=== PATIENT | male | born 1970 | race Caucasian/White ===

== ENCOUNTER 2024-01-29 19:51 | Outpatient (OUT) | payer OTHER, SELFPAY | END 2024-01-29 19:52 | disposition home or self-care (01) | LOC: SLEEP 19:52 | PROVIDERS: PCP Family Medicine; Visit Provider Family Medicine | DX: G47.33 Obstructive sleep apnea (adult) (pediatric) (principal) | CPT/HCPCS: 95811 ==

== ENCOUNTER 2024-03-25 02:30 | Outpatient (OUT) | payer OTHER, SELFPAY | END 2024-03-25 02:31 | disposition home or self-care (01) | LOC: SLEEP 14:31 | PROVIDERS: PCP Family Medicine; Visit Provider Family Medicine | DX: G47.30 Sleep apnea, unspecified (principal) | CPT/HCPCS: 95806 ==

== ENCOUNTER 2025-02-20 08:07 | Outpatient (OUT) | payer OTHER, SELFPAY ==
--- OUTSIDE RECORDS SUMMARY | 2025-02-20 08:11 | XMS_ITS | CCD ---
Author Organization [facility] Care Team Providers Care Chief I Dispatcher Name Role Phone Geremias BULLARD Primary Care Physician [phone] CHARLENE MONTANA Admitting Unavailable CHARLENE MONTANA Attending Unavailable CHARLENE MONTANA Consulting Unavailable Keon Steele Primary Care Physician Rachid Vargas Attending Unavailable Darron Hughes Attending Unavailable ROBINA TRAYLOR Attending Unavailable Keon Steele MD Primary Care Provider [phone] Medications Current Medications Medication Drug Class(es) Dates Sig (Normalized) Sig (Original) acetaminophen 325 mg / oxyCODONE hydrochloride 5 mg oral tablet (1 source) Opioid Agonist Start: 08-25-2023 End: 08-28-2023 acetaminophen-ox ycodone 325 mg-5 mg Tab 1 tab(s), Oral, q4hr for pain for 3 day(s), 12 tab(s), Refill(s) 0, [id number], 183, cm, 08/25/23 14:05:00 EDT, Height/Length Dosing, 155, kg, 08/25/23 14:05:00 EDT, Weight Dosing Start Date: 08/25/23 Stop Date: 08/28/23 Status: Ordered lisinopril 40 mg oral tablet (2 sources) Angiotensin Converting Enzyme Inhibitor lisinopril 40 MG tablet 1 (one) time each day at the same time Active methocarbamol 500 mg oral tablet (1 source) Muscle Relaxant Start: 08-25-2023 End: 09-01-2023 take 2 tablets by mouth four times daily Robaxin 500 mg Tab 1,000 mg = 2 tab(s), Oral, QID, X 7 day(s), # 56 tab(s), Refills(s) 0, Pharmacy: [id number], 183, cm, 08/25/23 14:05:00 EDT, Height/Length Dosing, 155, kg, 08/25/23 14:05:00 EDT, Weight Dosing Start Date: 08/25/23 Stop Date: 09/01/23 Status: Ordered Problems Active Problems Problem Classification Problem Date Documented Da te Episodic/Chronic Acute bronchitis (1 source) Acute bronchitis, unspecified; Translations: [ACUTE BRONCHITIS UNSPECIFIED] Onset: 02-03-2023 Episodic Open wounds of extremities (2 sources) Laceration of finger without foreign body; Translations: [Laceration without foreign body of left ring finger without damage to nail, initial encounter] Onset: 02-20-2022 Episodic Other nutritional; endocrine; and metabolic disorders (2 sources) Severe obesity; Translations: [Morbid (severe) obesity due to excess calories] 07-15-2024 Chronic Residual codes; unclassified (2 sources) Obstructive sleep apnea syndrome; Translations: [Obstructive sleep apnea (adult) (pediatric)] 07-15-2024 Chronic Residual codes; unclassified (2 sources) Hypersomnia; Translations: [Hypersomnia, unspecified] 07-15-2024 Chronic Spondylosis; intervertebral disc disorders; other back problems (1 source) Lumbago with sciatica; Translations: [Lumbago with sciatica, right side] Onset: 08-25-2023 Episodic Unclassified (3 sources) CONTACT W/AND (SUSP) EXPOS COVID-19; Translations: [CONTACT W/AND (SUSP) EXPOS COVID-19] Onset: 02-03-2023 Past or Other Problems Problem Classification Problem Date Documented Da te Episodic/Chronic Other lower respiratory disease (2 sources) Hypoxia; Translations: [Hypoxemia] 07-15-2024 Episodic Other lower respiratory disease (2 sources) Snoring; Translations: [Snoring] 07-15-2024 Episodic Residual codes; unclassified (2 sources) Sleep deprivation; Translations: [Sleep deprivation] 07-15-2024 Episodic Residual codes; unclassified (2 sources) Inadequate sleep hygiene; Translations: [Inadequate sleep hygiene] 07-15-2024 Episodic Unclassified (1 source) CONTACT W/AND (SUSP) EXPOS COVID-19; Translations: [CONTACT W/AND (SUSP) EXPOS COVID-19] Onset: 01-31-2023 Results Test Name Value Interpretation Reference Range Facil ity ED Note-Physicianon 10-17-20 23 ED Note-Physician Basic Information Time Seen: David HENDERSON, Shane Boyd. 08/25/2023 15:07 Chief Complaint Pt presents to ED with complaints of back pain. History of Present Illness A 53-year-old male reports to the emergency department with chief complaint of back pain. Reports his back pain has been going on over the last couple days. Reports he has had this before, there is a flareup of sciatica. Reports he did go to physical therapy on Saturday, similarly made it worse. Just wants we will give him through the pain. Denies any new injuries or symptoms. Denies any bowel or bladder defects. He states that he has no known allergies. He denies any pain otherwise. States that it goes in his right lower back down to his right leg. Review of Systems A 10 point review of systems is negative except as noted above. Medical and Surgical History: Reviewed and noted Social history: Lives at home Family History: Reviewed. Tobacco: Denies Physical Exam Vitals & Measurements T: 36.9 ?C(Oral) HR: 63(Peripheral) RR: 18 BP: 175/107 SpO2: 96% HT: 183 cm WT: 155 kg BMI: 46.28 General: The patient appears well and in no apparent distress. Patient is resting comfortably in chair. Afebrile Skin: Warm, dry, no pallor noted. Head: Normocephalic, atraumatic Neck: No JVD Eye: PERRLA, EOMI ENT: Moist mucus membranes Cardiovascular: Regular rate normal peripheral perfusion. Pedal pulses +2 bilaterally Respiratory: No respiratory distress no accessory muscle use no obvious audible wheezing Chest Wall: no deformity Musculoskeletal: No step-off of the midline spine, but there is tenderness generally throughout the right lumbar region of the back. No step-off felt. Positive straight leg test the right leg. GI: No obvious distention Neurological: A&O moves all extremities equal strength and symmetry Psychiatric: Cooperative and appropriate Medical Decision Making MEDICAL DECISION MAKING Number and Complexity of Problems Differential Diagnosis: [] [facility] Data External documents reviewed: [] My EKG interpretation: [] My CT interpretation: [] My X-ray interpretation: [] My Ultrasound interpretation: [] Decision rules/scores evaluated: [] Discussed with: [] Treatment and Disposition ED Course: 53-year-old male reports to the emergency department chief complaint of low back pain. Reports that this is flared up, and it was recently diagnosed with sciatica. States that it seems like it is worsening now after a physical therapy session on Saturday. Denies any injury or trauma. No warning signs for cauda equina syndrome. No saddle anesthesias or bowel or bladder defects. On physical exam 5 do not feel any step-offs felt. There is generalized region of the lumbar's region of the back, but otherwise a relatively benign exam. Due to his concerns, we will do pain medicine as well as muscle relaxer for symptomatic relief. Patient was happy with this. Discussed follow-up with PCP. Discussed return precautions. Follow-up with your primary care provider in 3 to 5 days. If symptoms worsen, do not improve, or new symptoms arise please report back to emergency department for further evaluation. The patient was understanding and agreeable to plan moving forward. Shared decision making: [] Code status: [] Assessment/Plan Lumbago with sciatica, right side (M54.41: Lumbago with sciatica, right side) Orders: acetaminophen-oxycodo ne, 1 tab(s), Oral, q4hr for pain for 3 day(s), 12 tab(s), Refill(s) 0, [id number], 183, cm, 08/25/23 14:05:00 EDT, Height/Length Dosing, 155, kg, 08/25/23 14:05:00 EDT, Weight Dosing ketorolac, 60 mg = 2 mL, Injection, IntraMuscular, Once, Stop date 08/25/23 15:24:00 EDT, STAT, Start date 08/25/23 15:24:00 EDT, 08/25/23 15:24:00 EDT methocarbamol, 1,000 mg = 2 tab(s), Oral, QID, X 7 day(s), # 56 tab(s), Refills(s) 0, Pharmacy: [id number], 183, cm, 08/25/23 14:05:00 EDT, Height/Length Dosing, 155, kg, 08/25/23 14:05:00 EDT, Weight Dosing morphine, 4 mg = 2 mL, Injection, IntraMuscular, Once, Stop date 08/25/23 15:24:00 EDT, STAT, Start date 08/25/23 15:24:00 EDT, 08/25/23 15:24:00 EDT orphenadrine, 60 mg = 2 mL, Injection, IntraMuscular, Once, Stop date 08/25/23 15:24:00 EDT, STAT, Start date 08/25/23 15:24:00 EDT, 08/25/23 15:24:00 EDT Medications Administered Given ketorolac 60 mg/2 mL Injection, 60 mg, IntraMuscular morphine 2 mg/mL Inj, 4 mg, IntraMuscular orphenadrine 30 mg/mL Inj, 60 mg, IntraMuscular Disposition Plan Patient Discharge Condition Stable Discharge Disposition To home Discharge Prescription List Prescriptions acetaminophen-oxycodo ne 325 mg-5 mg Tab, 1 tab(s), Oral, q4hr, PRN Robaxin 500 mg Tab, 1000 mg= 2 tab(s), Oral, QID Follow-up With When Contact Information Keon Steele In 3 days 08/28/2023 EDT [address] [phone] Business (1) Additional Instructions: Follow-up with your primary care provider in 3 to 5 da (more content not included)... [facility] Comment on above: Result Comment: Elec tronically Signed By: Shane Hernandez PA-C\.br\Date and Time Signed: 08/25/23 19:47 EDT\.br\Electronically Co-Signed By: Darron Hughes MD\.br\Date and Time Co-Signed: 08/27/23 20:30 EDT Consent for Treatmenton 08-11 Consent for Treatment [id number] .00TIFF [facility] Discharge Instructionson Discharge Instructions [id number]# 1.00TIFF [facility] ED Clinical Summaryon 2022 ED Clinical Summary [address] [address] ED Clinical Summary Person Information Name: DARREN AWAD/Kelly Age: 53 Years : 1970 Sex: Male Language: Angolan PCP: Keon Steele MD Marital Status: Phone: [phone] Visit Id: Visit Reason: Back pain; BACK PAIN Speciality: Acuity: 4 Enc Type: Emergency Med Service: Emergency Arrival: 08/25/2023 13:53:37 Discharge: 08/25/2023 16:25:16 LOS: 000 02:32 Checkin: 08/25/2023 13:53:37 Checkout: 08/25/2023 16:25:16 Dispo Type: Home (Routine DC) EVENTS: Event Name Event Status Request Date/Time Start Date/Time Complete Date/Time Arrive Complete 08/25/2023 13:53:37 08/25/2023 13:53:37 08/25/2023 13:53:37 Document Home Meds Request 08/25/2023 13:53:37 Triage Complete 08/25/2023 13:53:37 08/25/2023 14:05:49 08/25/2023 14:05:49 Registration Complete 08/25/2023 14:00:36 08/25/2023 14:00:36 08/25/2023 14:00:36 Reg Complete Request 08/25/2023 14:00:36 Bed Assign Complete 08/25/2023 14:08:37 08/25/2023 14:08:37 08/25/2023 14:08:37 Dr Exam Complete 08/25/2023 14:08:37 08/25/2023 15:07:06 08/25/2023 15:07:06 RN Exam Complete 08/25/2023 14:08:37 08/25/2023 16:24:50 08/25/2023 16:24:50 Registration Request 08/25/2023 15:07:06 Meds Admin Complete 08/25/2023 15:24:53 08/25/2023 15:56:50 Discharge Complete 08/25/2023 15:28:00 08/25/2023 16:25:25 08/25/2023 16:25:25 Transfer Complete 08/25/2023 16:25:25 08/25/2023 16:25:25 08/25/2023 16:25:25 ADDRESS: [facility] [place] [id number] PHYS DOC NOTES: MEDICAL INFORMATION: Prescriptions Given: New Medications [id number], [address] [place] [phone], [phone] acetaminophen-oxycodo ne (acetaminophen-oxycod one 325 mg-5 mg Tab) 1 Tablets By Mouth every 4 hours as needed for pain for 3 Days. Refills: 0. methocarbamol (Robaxin 500 mg Tab) 2 Tablets By Mouth 4 times a day for 7 Days. Refills: 0. Medications to Continue with No Changes Other Medications predniSONE (predniSONE 20 mg Tab) 3 Tablets By Mouth every day for 5 Days. Refills: 0. PATIENT EDUCATION INFORMATION: Instructions: Sciatica, Cemz-qq-Sock; Sciatica Rehab-SportsMed; Back Exercises, Enoe-dp-Yliw Follow up: With: Address: When: Keon Steele [address] [place] [address], [facility] [address] [phone] Business (1) In 3 days 08/28/2023 Comments: Follow-up with your primary care provider in 3 to 5 days. If symptoms worsen, do not improve, or new symptoms arise please report back to emergency department for further evaluation. DIAGNOSIS: Lumbago with sciatica, right side Normal [facility] ED Patient Education Noteon 08-25-2023 ED Patient Education Note Orthopedics Sciatica Sciatica is pain, weakness, tingling, or loss of feeling (numbness) along the sciatic nerve. The sciatic nerve starts in the lower back and goes down the back of each leg. Sciatica usually goes away on its own or with treatment. Sometimes, sciatica may come back (recur). What are the causes? This condition happens when the sciatic nerve is pinched or has pressure put on it. This may be the result of: ? A disk in between the bones of the spine bulging out too far (herniated disk). ? Changes in the spinal disks that occur with aging. ? A condition that affects a muscle in the butt. ? Extra bone growth near the sciatic nerve. ? A break (fracture) of the area between your hip bones (pelvis). ? . ? Tumor. This is rare. What increases the risk? You are more likely to develop this condition if you: ? Play sports that put pressure or stress on the spine. ? Have poor strength and ease of movement (flexibility). ? Have had a back injury in the past. ? Have had back surgery. ? Sit for long periods of time. ? Do activities that involve bending or lifting over and over again. ? Are very overweight (obese). What are the signs or symptoms? Symptoms can vary from mild to very bad. They may include: ? Any of these problems in the lower back, leg, hip, or butt: ? Mild tingling, loss of feeling, or dull aches. ? Burning sensations. ? Sharp pains. ? Loss of feeling in the back of the calf or the sole of the foot. ? Leg weakness. ? Very bad back pain that makes it hard to move. These symptoms may get worse when you cough, sneeze, or laugh. They may also get worse when you sit or stand for long periods of time. How is this treated? This condition often gets better without any treatment. However, treatment may include: ? Changing or cutting back on physical activity when you have pain. ? Doing exercises and stretching. ? Putting ice or heat on the affected area. ? Medicines that help: ? To relieve pain and swelling. ? To relax your muscles. ? Shots (injections) of medicines that help to relieve pain, irritation, and swelling. ? Surgery. Follow these instructions at home: Medicines ? Take uijn-nhd-fgvfznx and prescription medicines only as told by your doctor. ? Ask your doctor if the medicine prescribed to you: ? Requires you to avoid driving or using heavy machinery. ? Can cause trouble pooping (constipation). You may need to take these steps to prevent or treat trouble pooping: ? Drink enough fluids to keep your pee (urine) pale yellow. ? Take ifqe-vyy-yagtciu or prescription medicines. ? Eat foods that are high in fiber. These include beans, whole grains, and fresh fruits and vegetables. ? Limit foods that are high in fat and sugar. These include fried or sweet foods. Managing pain ? If told, put ice on the affected area. ? Put ice in a plastic bag. ? Place a towel between your skin and the bag. ? Leave the ice on for 20 minutes, 2?3 times a day. ? If told, put heat on the affected area. Use the heat source that your doctor tells you to use, such as a moist heat pack or a heating pad. ? Place a towel between your skin and the heat source. ? Leave the heat on for 20?30 minutes. ? Remove the heat if your skin turns bright red. This is very important if you are unable to feel pain, heat, or cold. You may have a greater risk of getting burned. Activity ? Return to your normal activities as told by your doctor. Ask your doctor what activities are safe for you. ? Avoid activities that make your symptoms worse. ? Take short rests during the day. ? When you rest for a long time, do some physical activity or stretching between periods of rest. ? Avoid sitting for a long time without moving. Get up and move around at least one time each hour. ? Exercise and stretch regularly, as told by your doctor. ? Do not lift anything that is heavier than 10 lb (4.5 kg) while you have symptoms of sciatica. ? Avoid lifting heavy things even when you do not have symptoms. ? Avoid lifting heavy things over and over. ? When you lift objects, always lift in a way that is safe for your body. To do this, you should: ? Bend your knees. ? Keep the object close to your body. ? Avoid twisting. General instructions ? Stay at a healthy weight. ? Wear comfortable shoes that support your feet. Avoid wearing high heels. ? Avoid sleeping on a mattress that is too soft or too hard. You might have less pain if you sleep on a mattress that is firm enough to support your back. ? Keep all follow-up visits as told by your doctor. This is important. Contact a doctor if: ? You have pain that: ? Wakes you up when you are sleeping. ? Gets worse when you lie down. ? Is worse than the pain you have had in the past. ? Lasts longer than (more content not included)... Normal [facility] ED Patient Summaryon 023 ED Patient Summary [address] [address] Patient Discharge Instructions Person Information Name: DARREN AWAD Age: 53 Years Arrival Date: 08/25/2023 13:53:37 Discharge Diagnosis: Lumbago with sciatica, right side Primary Care Physician: Keon Steele MD Provider Information Primary Provider: [employer] Technician:None The exam and treatment you received in the Emergency Department were for an urgent problem and are not intended as complete care. It is important that you follow up with a doctor, nurse practitioner, or physician?s per diem physical therapist assistant for ongoing care. If your symptoms become worse or you do not improve as expected and you are unable to reach your usual health care provider, you should return to the Emergency Department. We are available 24 hours a day. DARREN AWAD has been given the following list of patient education materials, prescriptions and follow-up instructions: Follow-up Instructions: With: Address: When: Keon Latifcliff [address] [place] [address] [place] [address] Business (1) In 3 days 08/28/2023 Comments: Follow-up with your primary care provider in 3 to 5 days. If symptoms worsen, do not improve, or new symptoms arise please report back to emergency department for further evaluation. In the event that this physician does not participate in your insurance network, please consult with your insurance company to find a nearby participating provider. Patient Education Materials: Sciatica, Gdbe-ox-Hdci; Sciatica Rehab-SportsMed; Back Exercises, Pgwf-ha-Sabl A MESSAGE TO ALL PATIENTS REGARDING OPIOIDS PRESCRIPTION OPIOIDS: WHAT YOU NEED TO KNOW Prescription opioids can be used to help relieve vfrnytal-hd-hibrad pain and are often prescribed following a surgery or injury, or for certain health conditions. These medications can be an important part of the treatment but also come with serious risks. It is important to work with your healthcare provider to make sure you are getting the safest, most effective care. WHAT ARE THE RISKS AND SIDE EFFECTS OF OPIOID USE? Prescription opioids carry serious risks of addiction and overdose, especially with prolonged use. An opioid overdose, often marked by slowed breathing, can cause sudden . The use of prescription opioids can have a number of side effects as well, even when taken as directed: ? Tolerance?meaning you might need to take more of the medication for the same pain relief ? Physical dependence?meaning you have symptoms of withdrawal when a medication is stopped ? Increased sensitivity to pain ? Constipation ? Nausea, vomiting, and dry mouth ? Sleepiness and dizziness ? Confusion ? Depression ? Low levels of testosterone that can result in lower sex drive, energy, and strength ? Itching and sweating RISKS ARE GREATER WITH: ? History of drug misuse, substance use disorder, or overdose ? Mental health conditions (such as depression or anxiety) ? Sleep apnea ? Older age (65 years and older) ? Avoid alcohol while taking prescription opioids. Also, unless specifically advised by your health care provider, medications to avoid include: ? Benzodiazepines (such as Xanax or Valium) ? Muscle relaxants (such as Soma or Flexeril) ? Hypnotics (such as Ambien or Lunesta) ? Other prescription opioids KNOW YOUR OPTIONS Talk to your health care provider about ways to manage your pain that don?t involve prescription opioids. Some of these options may actually work better and have fewer risks and side effects. Options may include: ? Pain relievers such as acetaminophen, ibuprofen, and naproxen ? Some medication that are also used for depression or seizures ? Physical therapy and exercise ? Cognitive behavioral therapy, a psychological, goal-directed approach, in which patients learn how to modify physical, behavioral, and emotional triggers of pain and stress. IF YOU ARE PRESCRIBED OPIOIDS FOR PAIN: ? Never take opioids in greater amounts or more often than prescribed. ? Follow up with your primary health care provider. o Work together to create a plan on how to manage your pain. o Talk about ways to help manage your pain that don?t involve prescription opioids. o Talk about any and all concerns and side effects. ? Help prevent misuse and abuse o Never sell or share prescription opioids. o Never use another person?s prescription opioids. ? Store prescription opioids in a secure place and out of reach of others (this may include visitors, children, friends, and family). ? Safely dispose of unused prescription opioids: Find your community drug take-back program or your pharmacy mail-back program, or flush them down the toilet, following guidance from the Food and Drug Administration (www.fda.gov/Drugs/Re sourcesForYou). ? Visit www.cdc.gov/drugoverd ose to learn abou (more content not included)... Normal [facility] ED Note-Physicianon 08-21-20 ED Note-Physician Basic Information Time Seen: Gt HENDERSON Quyen N 08/20/2023 18:04 Chief Complaint Patient states lower back pain started last . States pain radiates down right leg. History of Present Illness 53-year-old male presents to the ED complaining of low back pain that radiates down his right leg. Patient reports he has a lot of heavy lifting for work. No fall, injury, trauma. Reports history of back issues including neck issues, and is not currently being seen by specialist. States that last week he had pain to his left lower back which was mild. Reports that over the last couple days the pain has radiated to his right lower back and now radiates down his right leg and reports some tingling in his right thigh. No weakness or numbness of his extremities. Is able to ambulate but with pain. No saddle anesthesias. No loss of bladder or bowel function. No fevers or chills. No recent procedures. Denies IV drug use. Review of Systems All organ systems are reviewed. Pertinent positive and negative findings as mentioned in the HPI. Physical Exam Vitals & Measurements T: 36.6 ?C(Oral) HR: 67(Peripheral) RR: 18 BP: 199/94 SpO2: 97% HT: 183 cm WT: 155 kg BMI: 46.28 GENERAL APPEARANCE: Well developed, well nourished, alert and cooperative, and appears to be in no acute distress. HEAD: normocephalic, atraumatic EYES: PERRL, EOMI. Vision is grossly intact. EARS: External auditory canals clear, hearing grossly intact. NOSE: No nasal discharge. THROAT: Oral cavity and pharynx normal. Oral mucosa moist. CARDIAC: Normal heart sounds, no murmurs. Rhythm is regular. LUNGS: Clear to auscultation without rales, rhonchi, wheezing or diminished breath sounds. MUSCULOSKELETAL: Adequately aligned spine. ROM intact spine and extremities. No joint erythema or tenderness. BACK: Examination of the spine reveals normal gait and posture, no spinal deformity, symmetry of spinal muscles. No midline tenderness. There is point tenderness over the right SI joint and right buttock. Positive straight leg raise right leg. Strength and sensation equal and intact bilaterally. NEUROLOGICAL: CN grossly intact. Strength and sensation symmetric and intact throughout. SKIN: Skin normal color, texture and turgor with no lesions or eruptions. Assessment/Plan 1. Radicular pain of lower extremity (M54.10: Radiculopathy, site unspecified) Orders: methocarbamol, 1,000 mg = 2 tab(s), Tab, Oral, Once, Stop date 08/20/23 19:08:00 EDT, STAT, Start date 08/20/23 19:08:00 EDT, 08/20/23 19:08:00 EDT methocarbamol, 750 mg = 1 tab(s), Oral, TID, X 3 day(s), # 9 tab(s), Refills(s) 0 predniSONE, 60 mg = 3 tab(s), Tab, Oral, Once, Stop date 08/20/23 19:08:00 EDT, STAT, Start date 08/20/23 19:08:00 EDT, 08/20/23 19:08:00 EDT predniSONE, 60 mg = 3 tab(s), Oral, Daily, X 5 day(s), # 15 tab(s), Refills(s) 0 53-year-old male presents to the ED with complaints of atraumatic low back pain that radiates on the right leg. In the ED patient is afebrile vital signs are stable, no acute distress. No neurological deficit exam. No loss of bladder or bowel function, no saddle anesthesias. No fevers or chills. Likely related to radicular pain or sciatica. Patient educated on supportive care. Discharged home with prescription for prednisone and Robaxin. Patient to follow with PCP and is to return to the ED with any new or worsening symptoms. Patient voices understanding and is agreeable to plan Medications Administered Given predniSONE 20 mg Tab, 60 mg, Oral Robaxin 500 mg Tab, 1000 mg, Oral Disposition Plan Patient Discharge Condition Improved, stable Discharge Disposition to home Discharge Prescription List Prescriptions predniSONE 20 mg Tab, 60 mg= 3 tab(s), Oral, Daily Robaxin-750 oral tablet, 750 mg= 1 tab(s), Oral, TID Follow-up With When Contact Information Geremias BULLARD In 3 days [address] [facility] [address]- [phone] Business (1) Additional Instructions: Patient Education Radicular Pain Attestation Patient was treated and evaluated by the Physician Handyperson. The attending physician was in the Emergency Department at all times and supervised care. The case was discussed with the attending physician and diagnostics were reviewed as needed. Problem List/Past Medical History Ongoing No qualifying data Historical No qualifying data Medications Inpatient No active inpatient medications Home predniSONE 20 mg Tab, 60 mg= 3 tab(s), Oral, Daily Robaxin-750 oral tablet, 750 mg= 1 tab(s), Oral, TID Allergies No Known Allergies Social History Alcohol - Denies Alcohol Use, 02/20/2022 Substance Abuse - High Risk, 02/20/2022 Tobacco - Denies Tobacco Use, 02/20/2022 Lab Results No qualifying data available. Diagnostic Results No qualifying data available. [facility] Comment on above: Result Comment: Elec tronically Signed By: Quyen Del Real PA-C\.br\Date and Time Signed: 08/20/23 20:20 EDT\.br\Electronically Co-Signed By: Rachid Vargas DO\.br\Date and Time Co-Signed: 08/21/23 06:58 EDT Consent for Treatmenton 08-11 Consent for Treatment [id number] .[id number] [facility] Discharge Instructionson Discharge Instructions [id number]. [id number] [facility] ED Clinical Summaryon 2022 ED Clinical Summary [place] [id number] ED Clinical Summary Person Information Name: DARREN AWAD/[facility]Jonathon Age: 53 Years : 1970 Sex: Male Language: Angolan PCP: Geremias BULLARD DO Marital Status: Phone: [phone] Visit Id: Visit Reason: Leg pain-swelling; Back pain; LOWER BACK PAIN Speciality: Acuity: 4 Enc Type: Emergency Med Service: Emergency Arrival: 08/20/2023 16:57:16 Discharge: 08/20/2023 19:24:32 LOS: 000 02:27 Checkin: 08/20/2023 16:57:16 Checkout: 08/20/2023 19:24:32 Dispo Type: Home (Routine DC) EVENTS: Event Name Event Status Request Date/Time Start Date/Time Complete Date/Time Arrive Complete 08/20/2023 16:57:16 08/20/2023 16:57:16 08/20/2023 16:57:16 Document Home Meds Request 08/20/2023 16:57:16 Triage Complete 08/20/2023 16:57:16 08/20/2023 17:08:54 08/20/2023 17:08:54 Registration Complete 08/20/2023 17:55:19 08/20/2023 17:55:19 08/20/2023 17:55:19 Reg Complete Request 08/20/2023 17:55:19 Bed Assign Complete 08/20/2023 18:01:27 08/20/2023 18:01:27 08/20/2023 18:01:27 Dr Exam Complete 08/20/2023 18:01:27 08/20/2023 18:04:33 08/20/2023 18:04:33 RN Exam Complete 08/20/2023 18:01:27 08/20/2023 18:49:37 08/20/2023 18:49:37 Registration Request 08/20/2023 18:04:33 Dr Exam Complete 08/20/2023 18:07:02 08/20/2023 18:07:02 08/20/2023 18:07:02 Meds Admin Complete 08/20/2023 19:09:04 08/20/2023 19:22:56 Discharge Complete 08/20/2023 19:09:08 08/20/2023 19:24:39 08/20/2023 19:24:39 Transfer Complete 08/20/2023 19:24:40 08/20/2023 19:24:40 08/20/2023 19:24:40 ADDRESS: [address] [place] [address] [address] [phone] [facility] DOC NOTES: MEDICAL INFORMATION: Prescriptions Given: New Medications Printed Prescriptions methocarbamol (Robaxin-750 oral tablet) 1 Tablets By Mouth 3 times a day for 3 Days. Refills: 0. predniSONE (predniSONE 20 mg Tab) 3 Tablets By Mouth every day for 5 Days. Refills: 0. PATIENT EDUCATION INFORMATION: Instructions: Radicular Pain Follow up: With: Address: When: Geremias BULLARD [address], [facility] [place] [address] [phone] Business (1) In 3 days DIAGNOSIS: 1:Radicular pain of lower extremity Normal [facility] ED Patient Education Noteon 08-20-2023 ED Patient Education Note Orthopedics Radicular Pain Radicular pain is a type of pain that spreads from your back or neck along a spinal nerve. Spinal nerves are nerves that leave the spinal cord and go to the muscles. Radicular pain is sometimes called radiculopathy, radiculitis, or a pinched nerve. When you have this type of pain, you may also have weakness, numbness, or tingling in the area of your body that is supplied by the nerve. The pain may feel sharp and burning. Depending on which spinal nerve is affected, the pain may occur in the: ? Neck area (cervical radicular pain). You may also feel pain, numbness, weakness, or tingling in the arms. ? Mid-spine area (thoracic radicular pain). You would feel this pain in the back and chest. This type is rare. ? Lower back area (lumbar radicular pain). You would feel this pain as low back pain. You may feel pain, numbness, weakness, or tingling in the buttocks or legs. Sciatica is a type of lumbar radicular pain that shoots down the back of the leg. Radicular pain occurs when one of the spinal nerves becomes irritated or squeezed (compressed). It is often caused by something pushing on a spinal nerve, such as one of the bones of the spine (vertebrae) or one of the round cushions between vertebrae (intervertebral disks). This can result from: ? An injury. ? Wear and tear or aging of a disk. ? The growth of a bone spur that pushes on the nerve. Radicular pain often goes away when you follow instructions from your health care provider for relieving pain at home. How is this treated? Treatment may depend on the cause of the condition and may include: ? Working with a physical therapist. ? Taking pain medicine. ? Applying heat or ice or both to the affected areas. ? Doing stretches to improve flexibility. ? Having surgery. This may be needed if other treatments do not help. Different types of surgery may be done depending on the cause of this condition. Follow these instructions at home: Managing pain ? If directed, put ice on the affected area. To do this: ? Put ice in a plastic bag. ? Place a towel between your skin and the bag. ? Leave the ice on for 20 minutes, 2?3 times a day. ? Remove the ice if your skin turns bright red. This is very important. If you cannot feel pain, heat, or cold, you have a greater risk of damage to the area. ? If directed, apply heat to the affected area as often as told by your health care provider. Use the heat source that your health care provider recommends, such as a moist heat pack or a heating pad. ? Place a towel between your skin and the heat source. ? Leave the heat on for 20?30 minutes. ? Remove the heat if your skin turns bright red. This is especially important if you are unable to feel pain, heat, or cold. You have a greater risk of getting burned. Activity ? Do not sit or rest in bed for long periods of time. ? Try to stay as active as possible. Ask your health care provider what type of exercise or activity is best for you. ? Avoid activities that make your pain worse, such as bending and lifting. ? You may have to avoid lifting. Ask your health care provider how much you can safely lift. ? Practice using proper technique when lifting items. Proper lifting technique involves bending your knees and rising up. ? Do strength and pqmre-zv-mpzwnp exercises only as told by your health care provider or physical therapist. General instructions ? Take rulq-jrr-csbyyfx and prescription medicines only as told by your health care provider. ? Pay attention to any changes in your symptoms. ? Keep all follow-up visits. This is important. Contact a health care provider if: ? Your pain and other symptoms get worse. ? Your pain medicine is not helping. ? Your pain has not improved after a few weeks of home care. ? You have a fever. Get help right away if: ? You have severe pain, weakness, or numbness. ? You have difficulty with bladder or bowel control. Summary ? Radicular pain is a type of pain that spreads from your back or neck along a spinal nerve. ? When you have radicular pain, you may also have weakness, numbness, or tingling in the area of your body that is supplied by the nerve. ? The pain may feel sharp or burning. ? Radicular pain may be treated with ice, heat, medicines, or physical therapy. This information is not intended to replace advice given to you by your health care provider. Make sure you discuss any questions you have with your health care provider. Document Revised: 05/03/2022 Document Reviewed: 05/03/2022 Elsevier Patient Education ? 2022 [employer] Normal [facility] ED Patient Summaryon 023 ED Patient Summary [place] [id number] Patient Discharge Instructions Person Information Name: DARREN AWAD Age: 53 Years Arrival Date: 08/20/2023 16:57:16 Discharge Diagnosis: 1:Radicular pain of lower extremity Primary Care Physician: Geremias BULLARD DO Provider Information Primary Provider: Rachid Vargas DO Advanced Brewery Technician:Quyen Del Real PA-C The exam and treatment you received in the Emergency Department were for an urgent problem and are not intended as complete care. It is important that you follow up with a doctor, nurse practitioner, or physician?s per diem physical therapist assistant for ongoing care. If your symptoms become worse or you do not improve as expected and you are unable to reach your usual health care provider, you should return to the Emergency Department. We are available 24 hours a day. CLINTDARREN HODGSON has been given the following list of patient education materials, prescriptions and follow-up instructions: Follow-up Instructions: With: Address: When: Geremias BULLARD [address], [facility] [place] [address] [phone] Business (1) In 3 days In the event that this physician does not participate in your insurance network, please consult with your insurance company to find a nearby participating provider. Patient Education Materials: Radicular Pain A MESSAGE TO ALL PATIENTS REGARDING OPIOIDS PRESCRIPTION OPIOIDS: WHAT YOU NEED TO KNOW Prescription opioids can be used to help relieve uzqtjsyk-er-wzhrcs pain and are often prescribed following a surgery or injury, or for certain health conditions. These medications can be an important part of the treatment but also come with serious risks. It is important to work with your healthcare provider to make sure you are getting the safest, most effective care. WHAT ARE THE RISKS AND SIDE EFFECTS OF OPIOID USE? Prescription opioids carry serious risks of addiction and overdose, especially with prolonged use. An opioid overdose, often marked by slowed breathing, can cause sudden . The use of prescription opioids can have a number of side effects as well, even when taken as directed: ? Tolerance?meaning you might need to take more of the medication for the same pain relief ? Physical dependence?meaning you have symptoms of withdrawal when a medication is stopped ? Increased sensitivity to pain ? Constipation ? Nausea, vomiting, and dry mouth ? Sleepiness and dizziness ? Confusion ? Depression ? Low levels of testosterone that can result in lower sex drive, energy, and strength ? Itching and sweating RISKS ARE GREATER WITH: ? History of drug misuse, substance use disorder, or overdose ? Mental health conditions (such as depression or anxiety) ? Sleep apnea ? Older age (65 years and older) ? Avoid alcohol while taking prescription opioids. Also, unless specifically advised by your health care provider, medications to avoid include: ? Benzodiazepines (such as Xanax or Valium) ? Muscle relaxants (such as Soma or Flexeril) ? Hypnotics (such as Ambien or Lunesta) ? Other prescription opioids KNOW YOUR OPTIONS Talk to your health care provider about ways to manage your pain that don?t involve prescription opioids. Some of these options may actually work better and have fewer risks and side effects. Options may include: ? Pain relievers such as acetaminophen, ibuprofen, and naproxen ? Some medication that are also used for depression or seizures ? Physical therapy and exercise ? Cognitive behavioral therapy, a psychological, goal-directed approach, in which patients learn how to modify physical, behavioral, and emotional triggers of pain and stress. IF YOU ARE PRESCRIBED OPIOIDS FOR PAIN: ? Never take opioids in greater amounts or more often than prescribed. ? Follow up with your primary health care provider. o Work together to create a plan on how to manage your pain. o Talk about ways to help manage your pain that don?t involve prescription opioids. o Talk about any and all concerns and side effects. ? Help prevent misuse and abuse o Never sell or share prescription opioids. o Never use another person?s prescription opioids. ? Store prescription opioids in a secure place and out of reach of others (this may include visitors, children, friends, and family). ? Safely dispose of unused prescription opioids: Find your community drug take-back program or your pharmacy mail-back program, or flush them down the toilet, following guidance from the Food and Drug Administration (www.fda.gov/Drugs/Re sourcesForYou). ? Visit www.cdc.gov/drugoverd ose to learn about the risks of opioids abuse and overdose. ? If you believe you may be struggling with addiction, tell your health nurse healthcare manager and ask for guidance or call [facility]S National Helpline at 2-022-682-KYHG. v Holly (more content not included)... Normal [facility] SARS-CoV-2 (COVID-19) RNA ELISEO+probe Ql (Unsp spec) Not detected Normal NOT DETECTED [facility] Comment on above: Result Comment: This test is not yet approved or cleared by the [place] FDA. When there are no FDA-approved or cleared tests available, and other criteria are met, FDA can make tests available under an emergency access mechanism called an Emergency Use Authorization (EUA). The EUA for this test is supported by the Loading Machine Operator of Health and Human Service's (HHS's) declaration that circumstances exist to justify the emergency use of in vitro diagnostics for the detection and/or diagnosis of the virus that causes COVID-19. This EUA will remain in effect (meaning this test can be used) for the duration of the COVID-19 declaration justifying emergency of IVDs, unless it is terminated or revoked by FDA (after which the test may no longer be used). When diagnostic testing is negative, the possibility of a false negative should be considered in the context of a patient's recent exposures and the presence of clinical signs and symptoms consistent with SARS-CoV-2. Performed By: #### C VDTB #### [facility] [address] [place] [address] Dr. Keon Viera INFLUENZA A AND B AGon 01-31 INFLUANEGH SEE BELOW Normal [facility] Comment on above: Result Comment: Nega tive for Flu A protein angiten. Infection due to Flu A cannot be ruled out. Flu A angiten in the sample may be below the detection limit of the test. Performed By: #### I NFLUAB #### [facility] [address] [place] [address] Dr. Keon Viera INFLUBNEGH SEE BELOW Normal [facility] Comment on above: Result Comment: Nega tive for Flu B protein antigen. Infection due to Flu B cannot be ruled out. Flu B antigen in the sample may be below the detection limit of the test. Performed By: #### I NFLUAB #### [facility] [address] [place] [address] Dr. Keon iVera INFLUENZA A AG Negative Normal NEGATIVE SEE COMMENT [facility] Comment on above: Performed By: #### I NFLUAB #### [facility] [address] [address] [address] Keon Viera INFLUENZA B AG Negative Normal NEGATIVE SEE COMMENT [facility] Comment on above: Performed By: #### I NFLUAB #### [facility] [address] [place] [address] Dr. Keon Viera SYMPTOMATIC COVID-19 ANTIGEN on 01-31-2023 EUA Statement SEE BELOW Normal [facility] Comment on above: Result Comment: This test has not been FDA cleared or approved, but has been authorized by the FDA under an Emergency Use Authorization (EUA) for use by authorized laboratories certified under CLIA that meet the requirements to perform moderate or high complexity testing. This test has been authorized only for the detection of proteins from SARS-CoV-2, not for any other viruses or pathogens. The emergency use of this test is authorized for the duration of the declaration that circumstances exist justifying the authorization of emergency use of in vitro diagnostic tests for detection and/or diagnosis of Covid-19 under section 564(b)(1) of the Act, 21 U.S.C. 360bbb-3(b)(1), unless the declaration is terminated or authorization is revoked sooner. Performed By: #### C VDAGS #### [facility] [address] [place], [place] [address] Dr. Keon Viera SARS-CoV-2 (COVID-19) RNA ELISEO+probe Ql (Unsp spec) Negative Normal NEGATIVE [facility] Comment on above: Performed By: #### C VDAGS #### [facility] [address] [place], [place] [address] Dr. Keon Viera Vital Signs Date Time Vital Sign Value Performing Clinician Facility 07-15-2024 12:49-0400 Body height 182.9 cm Robina Angela DO Work Phone: [facility] 07-15-2024 12:49-0400 Body mass index (BMI) [Ratio] 47.47 kg/m2 Robina Angela DO Work Phone: [facility] 07-15-2024 12:49-0400 Body weight 158.76 kg Robina Angela DO Work Phone: [facility] 07-15-2024 12:49-0400 Diastolic blood pressure 84 mm[Hg] Robina Angela DO Work Phone: [facility] 07-15-2024 12:49-0400 Heart rate 72 /min Robina Angela DO Work Phone: [facility] 07-15-2024 12:49-0400 SaO2% (BldA) [Mass fraction] 96 % Robina Angela DO Work Phone: [facility] 07-15-2024 12:49-0400 Systolic blood pressure 136 mm[Hg] Robina Angela DO Work Phone: [facility] 08-25-2023 14:04-0400 Body temperature 98.42 [degF] [facility] 08-25-2023 14:04-0400 Diastolic blood pressure 107 mm[Hg] [facility] 08-25-2023 14:04-0400 Heart rate 63 /min [facility] 08-25-2023 14:04-0400 Respiratory rate 18 /min [facility] 08-25-2023 14:04-0400 SaO2% (BldA) [Mass fraction] 96 % [facility] 08-25-2023 14:04-0400 Systolic blood pressure 175 mm[Hg] [facility] 02-20-2022 19:00-0400 Diastolic blood pressure 111 mm[Hg] [facility] 02-20-2022 19:00-0400 Heart rate 76 /min [facility] 02-20-2022 19:00-0400 Hourly Rounding [facility] Comment on above: Result Comment: BP elevated. Pt states h e is on BP medication. Denies vision changes, PERES or dizziness. Provider notified. Pt to return to ER if any new complaints. States understanding. 02-20-2022 19:00-0400 Mean blood pressure 136 mm[Hg] [facility] 02-20-2022 19:00-0400 Promise to Return [facility] 02-20-2022 19:00-0400 Respiratory rate 16 /min [facility] 02-20-2022 19:00-0400 SaO2% (BldA) [Mass fraction] 99 % [facility] 02-20-2022 19:00-0400 Systolic blood pressure 186 mm[Hg] [facility] 02-20-2022 18:29-0400 Body temperature 97.7 [degF] [facility] 02-20-2022 18:29-0400 Heart rate 82 /min [facility] 02-20-2022 18:29-0400 Respiratory rate 17 /min [facility] 02-20-2022 18:29-0400 SaO2% (BldA) [Mass fraction] 96 % [facility] Encounters Encounter Date Encounter Type Care Provider Facility Start: 07-15-2024 End: 07-15-2024 Bamboo flowsheet Robina Traylor DO Work Phone: [facility] [employer] [address] Start: 07-15-2024 End: 07-15-2024 Bamboo flowsheet Robina Traylor DO Work Phone: [facility] [address] Start: 07-15-2024 End: 07-15-2024 Office consultation new/estab patient 60 min Robina Traylor DO Work Phone: [facility] [address] Comment on above: GLENDA (obstructive sle ep apnea); Hypoxia; Hypersomnia; Sleep deprivation; Inadequate sleep hygiene; Class 3 severe obesity due to excess calories with body mass index (BMI) of 40.0 to 44.9 in adult, unspecified whether serious comorbidity present (CMS/HCC); Snoring Start: 07-15-2024 End: 07-15-2024 ambulatory ROBINA TRAYLOR Not Available Start: 08-25-2023 End: 08-25-2023 Emergency department patient visit Darron Hughes Facility:[facility] Start: 08-25-2023 End: 08-25-2023 Emergency department patient visit [facility] Start: 08-20-2023 End: 08-20-2023 Emergency department patient visit Rachid Vargas Facility:[facility] Start: 01-31-2023 End: 01-31-2023 ambulatory CHARLENE MONTANA Facility: Start: 02-20-2022 End: 02-20-2022 Emergency department patient visit [facility] Plan of Treatment Date Care Activity Detail Author Start: 07-15-2024 End: 07-15-2024 Patient encounter procedure 07/15/2024 1:00 PM EDT [facility] [address] [place] [phone] Angela RobinaDO [address] [place] [address] [facility] [address] Comment on above: Arrived Start: 07-12-2024 Influenza vaccination Influenz a Vaccine (#1) [facility] Start: 1970 Screening for malign ant neoplasm of colon [facility] Immunizations Immunization Date Immunization Notes Care Provider Fa cility 02-20-2022 tetanus toxoid, redu neema diphtheria toxoid, and acellular pertussis vaccine, adsorbed; Translations: [Boostrix (Tdap)] [facility] 10-20-2021 Pfizer Purple Cap SARS-CoV-2 Vaccination Robina Traylor DO Work Phone: [facility] 08-07-2021 influenza virus vaccine, unspecified formulation Robina Traylor DO Work Phone: [facility] 03-29-2021 Moderna SARS-CoV-2 Vaccination Robina Angela DO Work Phone: [facility] Healthcare Payers Date Payer Category Payer Managed Care HMO (unspecified) [employer] [id number] 2023-Present [address] [place] [address] HMO [id number] 2023 Private Health Insurance [id number] 1970 Unknown [id number] 1970 Unknown [id number] 1970 Unknown [id number] 1970 Unknown [id number] 1957 Unknown [id number] Social History Date Type Detail Facility Tobacco smoking status Former smoker [facility] Start: 07-15-2024 Sex Assigned At Male F [facility] Tobacco smoking status No Smoking Status Entered [facility] Start: 07-15-2024 Tobacco smoking status NHIS Ex-smoker [facility] History of tobacco use Current smoker [facility] History of tobacco use Cigarette Smoker [facility] Start: 07-15-2024 Tobacco use and exposure User of smokeless tobacco [facility] Start: 07-15-2024 History of Social function [facility] Start: 1970 Sex assigned at Not on file [facility] Tobacco smoking status [facility] Tobacco smoking consumption unknown [facility] Functional Status Date Assessment Result Facility 08-25-2023 Functional Status N/A [facility] History of Present illness Narrative 07-15-2024 Robina Traylor, DO - 07/15/2024 1:00 PM EDT Note Date & Type Note Facility 07-15-2024 History of Presen t illness Narrative Images from the original note were not included. Chief Complaint Patient presents with Sleep Apnea Subjective Darren Awad, 54 y.o., male being seen in Sleep Consultation at the request of Dr. 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 He has tired during the day and snoring. The patient states that he is sleeping good at night. He is getting 6 hrs a night during the week and about 8 hrs a night on the weekends. He sleeps through the night. He is wearing his machine nightly. He denies issues with his machine. He needs filters. He does feel an improvement and benefit. NO issues with the mask or the machine itself. He says its a lot easier than he expected. Patient Symptoms Snores: yes Wakes gasping for breath: yes Dozes off if inactive: sometime Dozes off with activity: No Wakes a lot through the night: No Witnessed episodes of apnea: Yes Is sleep restful or restorative: No Bedtime: 1030pm Is it hard or easy to fall asleep: Easy Wake: 5:30 am Takes naps: No Feels better after napping: Sleepwalk: Yes when he was a child Sleeptalk: No Vivid Dreams: No Acts out dreams: No Sleep related hallucinations: No Sleep paralysis: No Cataplexy: No Restless Leg: Yes before he had his machine Kicking/Jerking at night: No TV on while sleeping: No Smoke before bed: No Caffeine within 3 hours before bed: Yes Past Medical History: Diagnosis Date Hypertension (CMS/HCC) History reviewed. No pertinent surgical history. Family History Problem Relation Name Age of Onset Cancer Mother COPD Father Heart attack Maternal Grandfather Heart disease Paternal Grandmother COPD Paternal Grandmother Other (black lung) Paternal Grandfather Social History Tobacco Use Smoking status: Former Types: Cigarettes Smokeless tobacco: Current Substance Use Topics Alcohol use: Not on file Allergies: Patient has no known allergies. General: No fever or chills HEENT: No nasal congestion or runny nose Pulmonary: No shortness of breath or cough Cardiovascular: No chest pain or palpitations GI: No nausea or vomiting : No dysuria or hematuria Musculoskeletal: No new aches or pains or muscle weakness Infectious: no recurrent fevers or infections Dermatologic: No rashes or skin lesions Neurologic: No new headaches or dizziness Vitals: 07/15/24 1249 BP: 136/84 Pulse: 72 SpO2: 96% Body mass index is 47.47 kg/m . 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 Recent and remote memory are intact. Attention and concentration are normal. Fund of knowledge is appropriate for level of education. HEENT: NC/AT Cranial nerves: CN II: Visual ramon full to confrontation. No loss of vision CN III, IV, : pupils equal round and reactive to light. Extraocular movements intact. No ptosis present. CN V: Facial sensation is normal. CN VII: Full and symmetric facial movement. CN VIII: Hearing is normal CN IX and X: Palate elevates symmetrically. CN XI: Shoulder shrug is normal bilaterally. CN XII: Tongue is midline without atrophy or fasciculation. Speech: Clear and fluent no aphasia or dysarthria Pronator drift: Negative bilateral upper extremity Coordination: Intact, no signs of dysmetria Good finger to nose and rapid alternating movements Sensory: Sensation is intact to light, temperature and vibratory touch throughout four extremities. Motor: LUE 5/5 RUE 5/5 LLE 5/5 RLE 5/5 Tone: Physiologic, no tremor, bradykinesia or rigidity DTR: Bilateral Biceps 2/4 Bilateral BR 2/4 Bilateral Patellar 1/4 No spasticity Gait: Normal to casual gait Romberg's Negative Review and summary of old records: Assessment/Plan Diagnoses and all orders for this visit: GLENDA (obstructive sleep apnea) Hypoxia Hypersomnia Sleep deprivation Inadequate sleep hygiene Class 3 severe obesity due to excess calories with body mass index (BMI) of 40.0 to 44.9 in adult, unspecified whether serious comorbidity present ([facility]) Snoring 54-year-old male with a mild obstructive sleep apnea seen on HST. I suspect this may be more severe on a in-house PSG. He did have a hypoxia down to 80 percent. This is leading to some daytime hypersomnolence and snoring. He does have underlying obesity. He failed his 0 dot screening which is why he was sent for evaluation. Patient was titrated onto CPAP at just 7 cm of water and this did work well for him and kept his oxygen in the 90s. He is now doing well with the machine and seeing a benefit and improvement is not feeling tired like he was. He does have some underlying sleep deprivation from inadequate hours of sleep and needs to get more sleep time. Patient is compliant with his machine needs using 100 percent of the time with 87 percent of the time greater than 4 hours average nightly usage is 6 hours and 11 minutes and his residual AHI is 1.1. Patient's Holladay Sleepiness scale is 3 Plan His HST was reviewed with him His CPAP titration was reviewed with him Compliance download was reviewed and he is compliant as above Patient was counseled on proper sleep hygiene including adequate hours of sleep and that he needs to get more sleep time and this will also help reduce his risk of stroke cardiovascular disease in the development of dementia The patient was counseled on the need for aggressive diet, exercise, and weight loss. The patient was counseled on proper sleep hygiene and adequate hours of sleep. The patient was counseled on the risks of stroke, AK, and sudden with GLENDA, along with the need for compliance with the CPAP/BiPAP treatment. The diagnosis was all discussed with the patient. All questions were answered and they agreed with the treatment plan. Patient will call if there are any new issues or questions. Pt has been fully educated on their diagnosis, treatment options, follow up plan, and return instructions Return to clinic: 1year documented in this encounter [facility] Discharge instructions 08-25-2023 Note Date & Type Note Facility 08-25-2023 Hospital Discharg e instructions Patient Education 08/25/2023 16:25:26 Sciatica, [id number] Sciatica Sciatica is pain, weakness, tingling, or loss of feeling (numbness) along the sciatic nerve. The sciatic nerve starts in the lower back and goes down the back of each leg. Sciatica usually goes away on its own or with treatment. Sometimes, sciatica may come back (recur). What are the causes? This condition happens when the sciatic nerve is pinched or has pressure put on it. This may be the result of: A disk in between the bones of the spine bulging out too far (herniated disk). Changes in the spinal disks that occur with aging. A condition that affects a muscle in the butt. Extra bone growth near the sciatic nerve. A break (fracture) of the area between your hip bones (pelvis). . Tumor. This is rare. What increases the risk? You are more likely to develop this condition if you: Play sports that put pressure or stress on the spine. Have poor strength and ease of movement (flexibility). Have had a back injury in the past. Have had back surgery. Sit for long periods of time. Do activities that involve bending or lifting over and over again. Are very overweight (obese). What are the signs or symptoms? Symptoms can vary from mild to very bad. They may include: Any of these problems in the lower back, leg, hip, or butt: ?Mild tingling, loss of feeling, or dull aches. ?Burning sensations. ?Sharp pains. Loss of feeling in the back of the calf or the sole of the foot. Leg weakness. Very bad back pain that makes it hard to move. These symptoms may get worse when you cough, sneeze, or laugh. They may also get worse when you sit or stand for long periods of time. How is this treated? This condition often gets better without any treatment. However, treatment may include: Changing or cutting back on physical activity when you have pain. Doing exercises and stretching. Putting ice or heat on the affected area. Medicines that help: ?To relieve pain and swelling. ?To relax your muscles. Shots (injections) of medicines that help to relieve pain, irritation, and swelling. Surgery. Follow these instructions at home: Medicines Take [id number]-hto-[id number] and prescription medicines only as told by your doctor. Ask your doctor if the medicine prescribed to you: ?Requires you to avoid driving or using heavy machinery. ?Can cause trouble pooping (constipation). You may need to take these steps to prevent or treat trouble pooping: ?Drink enough fluids to keep your pee (urine) pale yellow. ?Take xamo-oie-jnlsrfn or prescription medicines. ?Eat foods that are high in fiber. These include beans, whole grains, and fresh fruits and vegetables. ?Limit foods that are high in fat and sugar. These include fried or sweet foods. Managing pain If told, put ice on the affected area. ?Put ice in a plastic bag. ?Place a towel between your skin and the bag. ?Leave the ice on for 20 minutes, 2 3 times a day. If told, put heat on the affected area. Use the heat source that your doctor tells you to use, such as a moist heat pack or a heating pad. ?Place a towel between your skin and the heat source. ?Leave the heat on for 20 30 minutes. ?Remove the heat if your skin turns bright red. This is very important if you are unable to feel pain, heat, or cold. You may have a greater risk of getting burned. Activity Return to your normal activities as told by your doctor. Ask your doctor what activities are safe for you. Avoid activities that make your symptoms worse. Take short rests during the day. ?When you rest for a long time, do some physical activity or stretching between periods of rest. ?Avoid sitting for a long time without moving. Get up and move around at least one time each hour. Exercise and stretch regularly, as told by your doctor. Do not lift anything that is heavier than 10 lb (4.5 kg) while you have symptoms of sciatica. ?Avoid lifting heavy things even when you do not have symptoms. ?Avoid lifting heavy things over and over. When you lift objects, always lift in a way that is safe for your body. To do this, you should: ?Bend your knees. ?Keep the object close to your body. ?Avoid twisting. General instructions Stay at a healthy weight. Wear comfortable shoes that support your feet. Avoid wearing high heels. Avoid sleeping on a mattress that is too soft or too hard. You might have less pain if you sleep on a mattress that is firm enough to support your back. Keep all follow-up visits as told by your doctor. This is important. Contact a doctor if: You have pain that: ?Wakes you up when you are sleeping. ?Gets worse when you lie down. ?Is worse than the pain you have had in the past. ?Lasts longer than 4 weeks. You lose weight without trying. Get help right away if: You cannot control when you pee (urinate) or poop (have a bowel movement). You have weakness in any of these areas and it gets worse: ?Lower back. ?The area between your hip bones. ?Butt. ?Legs. You have redness or swelling of your back. You have a burning feeling when you pee. Summary Sciatica is pain, weakness, tingling, or loss of feeling (numbness) along the sciatic nerve. This condition happens when the sciatic nerve is pinched or has pressure put on it. Sciatica can cause pain, tingling, or loss of feeling (numbness) in the lower back, legs, hips, and butt. Treatment often includes rest, exercise, medicines, and putting ice or heat on the affected area. This information is not intended to replace advice given to you by your health care provider. Make sure you discuss any questions you have with your health care provider. Document Revised: 11/16/2019 Document Reviewed: 11/16/2019 [employer] Patient Education 2022 [employer]. 08/25/2023 16:25:26 Sciatica Rehab-[facility] Sciatica Rehab Ask your health care provider which exercises are safe for you. Do exercises exactly as told by your health care provider and adjust them as directed. It is normal to feel mild stretching, pulling, tightness, or discomfort as you do these exercises. Stop right away if you feel sudden pain or your pain gets worse. Do not begin these exercises until told by your health care provider. Stretching and vqohk-yd-ejssxa exercises These exercises warm up your muscles and joints and improve the movement and flexibility of your hips and back. These exercises also help to relieve pain, numbness, and tingling. Sciatic nerve glide 1.Sit in a chair with your head facing down toward your chest. Place your hands behind your back. Let your shoulders slump forward. 2.Slowly straighten one of your legs while you tilt your head back as if you are looking toward the ceiling. Only straighten your leg as far as you can without making your symptoms worse. 3.Hold this position for seconds. 4.Slowly return to the starting position. 5.Repeat with your other leg. Repeat times. Complete this exercise times a day. Knee to chest with hip adduction and internal rotation 1.Lie on your back on a firm surface with both legs straight. 2.Bend one of your knees and move it up toward your chest until you feel a gentle stretch in your lower back and buttock. Then, move your knee toward the shoulder that is on the opposite side from your leg. This is hip adduction and internal rotation. Hold your leg in this position by holding on to the front of your knee. 3.Hold this position for seconds. 4.Slowly return to the starting position. 5.Repeat with your other leg. Repeat times. Complete this exercise times a day. Prone extension on elbows 1.Lie on your abdomen on a firm surface. A bed may be too soft for this exercise. 2.Prop yourself up on your elbows. 3.Use your arms to help lift your chest up until you feel a gentle stretch in your abdomen and your lower back. This will place some of your body weight on your elbows. If this is uncomfortable, try stacking pillows under your chest. Your hips should stay down, against the surface that you are lying on. Keep your hip and back muscles relaxed. 4.Hold this position for seconds. 5.Slowly relax your upper body and return to the starting position. Repeat times. Complete this exercise times a day. Strengthening exercises These exercises build strength and endurance in your back. Endurance is the ability to use your muscles for a long time, even after they get tired. Pelvic tilt This exercise strengthens the muscles that lie deep in the abdomen. 1.Lie on your back on a firm surface. Bend your knees and keep your feet flat on the floor. 2.Tense your abdominal muscles. Tip your pelvis up toward the ceiling and flatten your lower back into the floor. To help with this exercise, you may place a small towel under your lower back and try to push your back into the towel. 3.Hold this position for seconds. 4.Let your muscles relax completely before you repeat this exercise. Repeat times. Complete this exercise times a day. Alternating arm and leg raises 1.Get on your hands and knees on a firm surface. If you are on a hard floor, you may want to use padding, such as an exercise mat, to cushion your knees. 2.Line up your arms and legs. Your hands should be directly below your shoulders, and your knees should be directly below your hips. 3.Lift your left leg behind you. At the same time, raise your right arm and straighten it in front of you. Do not lift your leg higher than your hip. Do not lift your arm higher than your shoulder. Keep your abdominal and back muscles tight. Keep your hips facing the ground. Do not arch your back. Keep your balance carefully, and do not hold your breath. 4.Hold this position for seconds. 5.Slowly return to the starting position. 6.Repeat with your right leg and your left arm. Repeat times. Complete this exercise times a day. Posture and body mechanics Good posture and healthy body mechanics can help to relieve stress in your body's tissues and joints. Body mechanics refers to the movements and positions of your body while you do your daily activities. Posture is part of body mechanics. Good posture means: Your spine is in its natural S-curve position (neutral). Your shoulders are pulled back slightly. Your head is not tipped forward. Follow these guidelines to improve your posture and body mechanics in your everyday activities. Standing When standing, keep your spine neutral and your feet about hip width apart. Keep a slight bend in your knees. Your ears, shoulders, and hips should line up. 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 This helps keep your spine neutral. Sitting When sitting, keep your spine neutral and keep your feet flat on the floor. Use a footrest, if necessary, and keep your thighs parallel to the floor. Avoid rounding your shoulders, and avoid tilting your head forward. When working at a desk or a computer, keep your desk at a height where your hands are slightly lower than your elbows. Slide your chair under your desk so you are close enough to maintain good posture. When working at a computer, place your monitor at a height where you are looking straight ahead and you do not have to tilt your head forward or downward to look at the screen. Resting When lying down and resting, avoid positions that are most painful for you. If you have pain with activities such as sitting, bending, stooping, or squatting, lie in a position in which your body does not bend very much. For example, avoid curling up on your side with your arms and knees near your chest ( position). If you have pain with activities such as standing for a long time or reaching with your arms, lie with your spine in a neutral position and bend your knees slightly. Try the following positions: ?Lying on your side with a pillow between your knees. ?Lying on your back with a pillow under your knees. Lifting When lifting objects, keep your feet at least shoulder width apart and tighten your abdominal muscles. Bend your knees and hips and keep your spine neutral. It is important to lift using the strength of your legs, not your back. Do not lock your knees straight out. Always ask for help to lift heavy or awkward objects. This information is not intended to replace advice given to you by your health care provider. Make sure you discuss any questions you have with your health care provider. Document Revised: 02/19/2020 Document Reviewed: 11/19/2019 [employer] Patient Education 2022 [employer] 08/25/2023 16:25:26 Back Exercises, Qkon-nk-Urav Back Exercises These exercises help to make your trunk and back strong. They also help to keep the lower back flexible. Doing these exercises can help to prevent or lessen pain in your lower back. If you have back pain, try to do these exercises 2 3 times each day or as told by your doctor. As you get better, do the exercises once each day. Repeat the exercises more often as told by your doctor. To stop back pain from coming back, do the exercises once each day, or as told by your doctor. Do exercises exactly as told by your doctor. Stop right away if you feel sudden pain or your pain gets worse. Exercises Single knee to chest Do these steps 3 5 times in a row for each le.Lie on your back on a firm bed or the floor with your legs stretched out. 2.Bring one knee to your chest. 3.Grab your knee or thigh with both hands and hold it in place. 4.Pull on your knee until you feel a gentle stretch in your lower back or butt. 5.Keep doing the stretch for 10 30 seconds. 6.Slowly let go of your leg and straighten it. Pelvic tilt Do these steps 5 10 times in a row: 1.Lie on your back on a firm bed or the floor with your legs stretched out. 2.Bend your knees so they point up to the ceiling. Your feet should be flat on the floor. 3.Tighten your lower belly (abdomen) muscles to press your lower back against the floor. This will make your tailbone point up to the ceiling instead of pointing down to your feet or the floor. 4.Stay in this position for 5 10 seconds while you gently tighten your muscles and breathe evenly. Cat cow Do these steps until your lower back bends more easily: 1.Get on your hands and knees on a firm bed or the floor. Keep your hands under your shoulders, and keep your knees under your hips. You may put padding under your knees. 2.Let your head hang down toward your chest. Tighten (contract) the muscles in your belly. Point your tailbone toward the floor so your lower back becomes rounded like the back of a cat. 3.Stay in this position for 5 seconds. 4.Slowly lift your head. Let the muscles of your belly relax. Point your tailbone up toward the ceiling so your back forms a sagging arch like the back of a cow. 5.Stay in this position for 5 seconds. Press-ups Do these steps 5 10 times in a row: 1.Lie on your belly (face-down) on a firm bed or the floor. 2.Place your hands near your head, about shoulder-width apart. 3.While you keep your back relaxed and keep your hips on the floor, slowly straighten your arms to raise the top half of your body and lift your shoulders. Do not use your back muscles. You may change where you place your hands to make yourself more comfortable. 4.Stay in this position for 5 seconds. Keep your back relaxed. 5.Slowly return to lying flat on the floor. Bridges Do these steps 10 times in a row: 1.Lie on your back on a firm bed or the floor. 2.Bend your knees so they point up to the ceiling. Your feet should be flat on the floor. Your arms should be flat at your sides, next to your body. 3.Tighten your butt muscles and lift your butt off the floor until your waist is almost as high as your knees. If you do not feel the muscles working in your butt and the back of your thighs, slide your feet 1 2 inches (2.5 5 cm) farther away from your butt. 4.Stay in this position for 3 5 seconds. 5.Slowly lower your butt to the floor, and let your butt muscles relax. If this exercise is too easy, try doing it with your arms crossed over your chest. Belly crunches Do these steps 5 10 times in a row: 1.Lie on your back on a firm bed or the floor with your legs stretched out. 2.Bend your knees so they point up to the ceiling. Your feet should be flat on the floor. 3.Cross your arms over your chest. 4.Tip your chin a little bit toward your chest, but do not bend your neck. 5.Tighten your belly muscles and slowly raise your chest just enough to lift your shoulder blades a tiny bit off the floor. Avoid raising your body higher than that because it can put too much stress on your lower back. 6.Slowly lower your chest and your head to the floor. Back lifts Do these steps 5 10 times in a row: 1.Lie on your belly (face-down) with your arms at your sides, and rest your forehead on the floor. 2.Tighten the muscles in your legs and your butt. 3.Slowly lift your chest off the floor while you keep your hips on the floor. Keep the back of your head in line with the curve in your back. Look at the floor while you do this. 4.Stay in this position for 3 5 seconds. 5.Slowly lower your chest and your face to the floor. Contact a doctor if: Your back pain gets a lot worse when you do an exercise. Your back pain does not get better within 2 hours after you exercise. If you have any of these problems, stop doing the exercises. Do not do them again unless your doctor says it is okay. Get help right away if: You have sudden, very bad back pain. If this happens, stop doing the exercises. Do not do them again unless your doctor says it is okay. This information is not intended to replace advice given to you by your health care provider. Make sure you discuss any questions you have with your health care provider. Document Revised: 01/10/2022 Document Reviewed: 01/10/2022 [employer] Patient Education 2022 [employer]. Follow Up Care 08/25/2023 13:55:13 With:Keon Steele Address: [address] [place], [place] [id number]- Business (1) When:08/28/2023 15:27:33 Comments:Follow-up with your primary care provider in 3 to 5 days. If symptoms worsen, do not improve, or new symptoms arise please report back to emergency department for further evaluation. [facility] Hospital Discharge instructions 02-20-2022 Note Date & Type Note Facility 02-20-2022 Hospital Discharg e instructions Patient Education 02/20/2022 19:47:07 Sutured Wound Care, Rcog-hn-[id number] Sutured Wound Care Sutures are stitches that can be used to close wounds. Taking care of your wound properly can help prevent pain and infection. It can also help your wound to heal more quickly. Follow instructions from your doctor about how to care for your sutured wound. Supplies needed: Soap and water. A clean bandage (dressing), if needed. Antibiotic ointment. A clean towel. How to care for your sutured wound Keep the wound completely dry for the first 24 hours or as long as told by your doctor. After 24 48 hours, you may shower or bathe as told by your doctor. Do not soak the wound or put the wound completely under water until the sutures have been removed. After the first 24 hours, clean the wound once a day, or as often as your doctor tells you to. Take these steps: ?Wash the wound with soap and water. ?Rinse the wound with water. Make sure to wash all the soap off. ?Pat the wound dry with a clean towel. Do not rub the wound. After cleaning the wound, put a thin layer of antibiotic ointment on the wound as told by your doctor. This will help: ?Prevent infection. ?Keep the bandage from sticking to the wound. Follow instructions from your doctor about how to change your bandage: ?Wash your hands with soap and water. If you cannot use soap and water, use hand c java developer. ?Change your bandage at least once a day, or as often as told by your doctor. If your dressing gets wet or dirty, change it. ?Leave sutures, skin glue, or skin tape (adhesive) strips in place. They may need to stay in place for 2 weeks or longer. If tape strips get loose and curl up, you may trim the loose edges. Do not remove tape strips completely unless your doctor says it is okay. Check your wound every day for signs of infection. Watch for: ?Redness, swelling, or pain. ?Fluid or blood. ?Warmth. ?Pus or a bad smell. Have the sutures removed as told by your doctor. Follow these instructions at home: Medicines Take or apply hffz-joz-[id number] and prescription medicines only as told by your doctor. If you were prescribed an antibiotic medicine or ointment, take or apply it as told by your doctor. Do not stop using the antibiotic even if you start to feel better. General instructions Cover your wound with clothes or put sunscreen on when you are outside. Use a sunscreen of at least 30 SPF. Do not scratch or pick at your wound. Avoid stretching your wound. Raise (elevate) the injured area above the level of your heart while you are sitting or lying down, if possible. Drink enough fluids to keep your pee (urine) clear or pale yellow. Keep all follow-up visits as told by your doctor. This is important. Contact a doctor if: You were given a tetanus shot and you have any of the following at the site where the needle went in: ?Swelling. ?Very bad pain. ?Redness. ?Bleeding. Your wound breaks open. You have redness, swelling, or pain around your wound. You have fluid or blood coming from your wound. Your wound feels warm to the touch. You have a fever. You notice something coming out of your wound, such as wood or glass. You have pain that does not get better with medicine. The skin near your wound changes color. You need to change your bandage often due to a lot of fluid, blood, or pus coming from the wound. You get a new rash. You get numbness around the wound. Get help right away if: You have very bad swelling around your wound. You have pus or a bad smell coming from your wound. Your pain suddenly gets worse and is very bad. You have painful lumps near your wound or anywhere on your body. You have a red streak going away from your wound. The wound is on your hand or foot, and: ?You cannot move a finger or toe as you used to do. ?Your fingers or toes look pale or blue. ?You have numbness that spreads down your hand, foot, fingers, or toes. Summary Sutures are stitches that are used to close wounds. Taking care of your wound properly can help prevent pain and infection. Keep the wound completely dry for the first 24 hours or for as long as told by your doctor. After 24 48 hours, you may shower or bathe as directed by your doctor. This information is not intended to replace advice given to you by your health care provider. Make sure you discuss any questions you have with your health care provider. Document Released: 04/15/2009 Document Revised: 10/10/2018 Document Reviewed: 12/03/2017 [employer] Patient Education 2020 [employer]. 02/20/2022 19:47:07 Laceration Care, Adult Laceration Care, Adult A laceration is a cut that may go through all layers of the skin and into the tissue that is right under the skin. Some lacerations heal on their own. Others need to be closed with stitches (sutures), isaak, skin adhesive strips, or skin glue. Proper care of a laceration reduces the risk for infection, helps the laceration heal better, and may prevent scarring. How to care for your laceration Wash your hands with soap and water before touching your wound or changing your bandage (dressing). If soap and water are not available, use hand c java developer. Keep the wound clean and dry. If you were given a dressing, you should change it at least once a day, or as told by your health care provider. You should also change it if it becomes wet or dirty. If sutures or isaak were used: Keep the wound completely dry for the first 24 hours, or as told by your health care provider. After that time, you may shower or bathe. However, make sure that the wound is not soaked in water until after the sutures or isaak have been removed. Clean the wound once each day, or as told by your health care provider: ?Wash the wound with soap and water. ?Rinse the wound with water to remove all soap. ?Pat the wound dry with a clean towel. Do not rub the wound. After cleaning the wound, apply a thin layer of antibiotic ointment as told by your health care provider. This will help prevent infection and keep the dressing from sticking to the wound. Have the sutures or isaak removed as told by your health care provider. If skin adhesive strips were used: Do not get the skin adhesive strips wet. You may shower or bathe, but be careful to keep the wound dry. If the wound gets wet, pat it dry with a clean towel. Do not rub the wound. Skin adhesive strips fall off on their own. You may trim the strips as the wound heals. Do not remove skin adhesive strips that are still stuck to the wound. They will fall off in time. If skin glue was used: Try to keep the wound dry, but you may briefly wet it in the shower or bath. Do not soak the wound in water, such as by swimming. After you have showered or bathed, gently pat the wound dry with a clean towel. Do not rub the wound. Do not do any activities that will make you sweat heavily until the skin glue has fallen off on its own. Do not apply liquid, cream, or ointment medicine to the wound while the skin glue is in place. Using those may loosen the film before the wound has healed. If a dressing is placed over the wound, be careful not to apply tape directly over the skin glue. Doing that may cause the glue to be pulled off before the wound has healed. Do not pick at the glue. Skin glue usually remains in place for 5 10 days and then falls off the skin. General instructions Take xigc-sbq-pvvwtiy and prescription medicines only as told by your health care provider. If you were prescribed an antibiotic medicine or ointment, take or apply it as told by your health care provider. Do not stop using it even if your condition improves. Do not scratch or pick at the wound. Check your wound every day for signs of infection. Watch for: ?Redness, swelling, or pain. ?Fluid, blood, or pus. Raise (elevate) the injured area above the level of your heart while you are sitting or lying down for the first 24 48 hours after the laceration is repaired. If directed, put ice on the affected area: ?Put ice in a plastic bag. ?Place a towel between your skin and the bag. ?Leave the ice on for 20 minutes, 2 3 times a day. Keep all follow-up visits as told by your health care provider. This is important. Contact a health care provider if: You received a tetanus shot and you have swelling, severe pain, redness, or bleeding at the injection site. You have a fever. A wound that was closed breaks open. You notice a bad smell coming from your wound or your dressing. You notice something coming out of the wound, such as wood or glass. Your pain is not controlled with medicine. You have increased redness, swelling, or pain at the site of your wound. You have fluid, blood, or pus coming from your wound. You need to change the dressing often due to fluid, blood, or pus that is draining from the wound. You develop a new rash. You develop numbness around the wound. Get help right away if: You develop severe swelling around the wound. Your pain suddenly increases and is severe. You develop painful lumps near the wound or on skin anywhere else on your body. You have a red streak going away from your wound. The wound is on your hand or foot and you cannot properly move a finger or toe. The wound is on your hand or foot, and you notice that your fingers or toes look pale or bluish. Summary A laceration is a cut that may go through all layers of the skin and into the tissue that is right under the skin. Some lacerations heal on their own. Others need to be closed with stitches (sutures), isaak, skin adhesive strips, or skin glue. Proper care of a laceration reduces the risk of infection, helps the laceration heal better, and prevents scarring. This information is not intended to replace advice given to you by your health care provider. Make sure you discuss any questions you have with your health care provider. Document Released: 10/28/2006 Document Revised: 12/26/2018 Document Reviewed: 11/17/2018 [employer] Patient Education 2020 [employer] Follow Up Care 02/20/2022 18:26:49 With:Geremiastrey BULLARD Address: [address] [place], [place] [phone]- Business (1) When:03/02/2022 19:22:09 Comments:Follow-up with your primary care doctor in 10 days for suture removal. If any signs of infection, redness, or swelling continue or worsen please report back to the emergency department. You may use soap and water to clean your wound after 2 to 3 days. [facility] Evaluation + Plan note Note Date & Type Note Facility Evaluation + Plan note No data available for this section [facility] Evaluation note Note Date & Type Note Facility Evaluation note Diagnosis GLENDA (obstructive sleep apnea) Obstructive sleep apnea (adult) (pediatric) Hypoxia Hypoxemia Hypersomnia Hypersomnia, unspecified Sleep deprivation Problems related to lack of adequate sleep Inadequate sleep hygiene Other specific disorder of sleep of nonorganic origin Class 3 severe obesity due to excess calories with body mass index (BMI) of 40.0 to 44.9 in adult, unspecified whether serious comorbidity present (CMS/[facility]) Snoring Other dyspnea and respiratory abnormality documented in this encounter [facility] Progress note Note Date & Type Note Facility Progress note No data available for this section [facility] Summary Purpose Family History No Family History Records Found No data available for this section No Family History Records FoundNo Family History Records FoundNo Family History Records Found Advance Directives No Advanced Directives Records FoundNo Advanced Directives Records FoundNo Advanced Directives Records FoundNo Advanced Directives Records Found Additional Source Comments (unrecognized sect ion and content) No Status Records FoundNo Status Records FoundNo Status Records FoundNo Status Records Found INFORMATION SOURCE (unrecogn ized section and content) DATE CREATED AUTHOR 02/03/2023 [facility] DATE CREATED AUTHOR AUTHOR'S ORGANIZ ATION 08/29/2023 [facility] DATE CREATED AUTHOR AUTHOR'S ORGANIZ ATION 07/17/2024 [facility] EPIC DATE CREATED AUTHOR AUTHOR'S ORGANIZ ATION 09/13/2024 [facility] Patient Care team informatio n (unrecognized section and content) Chief I Dispatcher Relationship Specialty Start Date End Date Keon Steele MD [address] [place] [id number] PCP - General Family Medicine 04/23/24 Chief I Dispatcher Relationship Specialty Start Date End Date Keon Steele MD [address] [place] [id number] PCP - General Family Medicine 04/23/24 Reason for Visit (unrecogniz ed section and content) Reason Comments Sleep Apnea FOR RECORDS PERTAINING TO PATIENTS WHO ARE OR HAVE BEEN ENROLLED IN A CHEMICAL DEPENDENCY/SUBSTANCEABUSE PROGRAM, SOME INFORMATION MAY BE OMITTED. This clinical summary was aggregated from multiple sources. Caution should be exercised in using it in the provision of clinical care. This summary normalizes information from multiple sources, and as a consequence, information in this document may materially change the coding, format and clinical context of patient data. In addition, data may be omitted in some cases. CLINICAL DECISIONS SHOULD BE BASED ON THE PRIMARY CLINICAL RECORDS. [facility] [employer] provides no warranty or guarantee of the accuracy or completeness of information in this document.
[2025-02-20 08:30] LABS: Basophils Absolute Auto 0.1 10^3/uL (0.0-0.1); Basophils Percent Auto 1.5 % (0.2-2.0); Eosinophils Absolute Auto 0.2 10^3/uL (0.0-0.7); Eosinophils Percent Auto 2.8 % (0.9-7.0); Hematocrit 47.1 % (42.0-54.0); Hemoglobin 15.5 g/dL (14.0-18.0); Immature Granulocytes Abs Auto 0.03 10^3/uL (0.00-0.03); Immature Granulocytes Pct Auto 0.4 % (0.0-0.5); Lymphocytes Absolute Auto 3.1 10^3/uL (1.2-3.8); Mean Corpuscular HGB Conc 32.9 g/dL (29.9-35.2); Mean Corpuscular Hemoglobin 30.2 pg (25.9-34.0); Mean Corpuscular Volume 91.8 fL (80.0-94.0); Mean Platelet Volume 10.4 fL (9.5-13.5); Monocytes Absolute Auto 0.6 10^3/uL (0.3-0.8); Monocytes Percent Auto 7.8 % (1.7-12.0); Neutrophils Percent Auto 49.5 % (43.0-75.0); Platelet Count 302 10^3/uL (150-450); Red Blood Count 5.13 10^6/uL (4.70-6.10); Red Cell Distribution Width 12.6 % (11.0-15.0); White Blood Count 8.2 10^3/uL (4.0-11.0)
[2025-02-20 08:52] LABS: Estimated Average Glucose 114 mg/dL; Glycohemoglobin A1C 5.6 % (4.5-6.2)
[2025-02-20 09:20] LABS: Alanine Aminotransferase 42 U/L (16-63); Albumin Level 3.7 g/dL (3.4-5.0); Alkaline Phosphatase 68 U/L (46-116); Anion Gap 7.2; Aspartate Amino Transferase 19 U/L (15-37); BUN Creatinine Ratio 15.3; Bilirubin Total 0.6 mg/dL (0.2-1.0); Calcium 9.1 mg/dL (8.5-10.1); Carbon Dioxide 31.9 mmol/L (21.0-32.0); Chloride 103 mmol/L (98-107); Chol HDL Ratio 3.6; Cholesterol 194 mg/dL (<=200); Estimated GFR (African America >60 (>=60 mL/min/1.73m^2); Estimated GFR (Non-African Ame >60 (>=60 mL/min/1.73m^2); Free T3 2.72 pg/mL (2.18-3.98); Globulin 3.6 g/dL; Glucose 109 mg/dL (74-106); HDL Cholesterol 54 mg/dL (40-60); Potassium 4.1 mmol/L (3.5-5.1); Sodium 138 mmol/L (136-145); Thyroid Stimulating Hormone 1.925 uIU/mL (0.358-3.740); Total Protein 7.3 g/dL (6.4-8.2); Triglycerides 154 mg/dL (<=150); VLDL CHOLESTEROL 30.8 mg/dL
== END 2025-02-20 08:08 | disposition home or self-care (01) ==
PROVIDERS: PCP Family Medicine; Visit Provider Family Medicine
DX: Z00.00 Encounter for general adult medical examination without abnormal findings (principal); Z12.5 Encounter for screening for malignant neoplasm of prostate
CPT/HCPCS: 36415; 80053; 80061; 83036; 84436; 84443; 84481; 85025; G0103